=== PATIENT | male | born 1970 | race Two or more races ===

== ENCOUNTER 2020-02-22 05:19 | Inpatient (IN) | payer OTHER ==
[~2020-02-22] VITALS: Ht 170.2 cm; Wt 129.7 kg
[2020-02-22] VITALS (16 sets, daily range): BP systolic 129–165; BP diastolic 55–88
[~2020-02-22 05:19] MED LIST: METFORMIN HCL1000 M1 ORAL
[2020-02-22] MEDS ORDERED: Lidocaine 1% MPF 10mg/ml 5ml ONE (06:13)
[2020-02-22] MEDS ORDERED: Succinylcholine 20mg/ml 10ml vial ONE (06:19)
[2020-02-22] MEDS ORDERED: Rocuronium Bromide 100mg/10ml Inj IV ONE ×3 (06:19→08:12)
[2020-02-22] MEDS ORDERED: Midazolam 2mg/2ml Inj ONE (06:23)
[2020-02-22] MEDS ORDERED: fentaNYL 100 mcg/2 mL IV ONE ×2 (06:23→08:18)
[2020-02-22] MEDS ORDERED: Gelfoam Size TOPIC ONE (06:54)
[2020-02-22] MEDS ORDERED: Bacitracin 50000 Units Vial ONE (06:54)
[2020-02-22] MEDS ORDERED: Thrombin 5000 units TOPIC ONE (06:54)
[2020-02-22] MEDS ORDERED: Neostigmine 1mg/ml 10ml Inj ONE (07:00)
[2020-02-22] MEDS ORDERED: LR 1000ml ONE (07:00)
[2020-02-22] MEDS ORDERED: NS Irrig 1000ml ONE (07:00)
[2020-02-22] MEDS ORDERED: Sterile Water Irrig 1000ml IRRIG ONE (07:00)
[2020-02-22] MEDS ORDERED: propofoL 1,000mg/100ml IV ONE (07:00)
--- NOTE | 2020-02-22 07:01 | Pre-Procedure Note/Attestation ---
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 I attest that, if there was a reasonable possibility of needing a blood transfusion, the patient (or the patient's legal service representative) was given the [facility] standardized written summary, pursuant to the [place] Blood Safety Act ([place] Health and Safety Code # 1645, as amended). I attest that I re-evaluated the patient just prior to the surgery and that there has been no change in the patient's H&P, except as documented below: Adarsh Kimball MD Feb 22, 2020 07:01
--- NOTE | 2020-02-22 07:25 | Brief Operative Note ---
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 Adarsh Kimball Skid Road Worker: Nixon Rodriguez Jr Anesthesiologist: Dr Diallo Anesthesia: general Specimen: none Complications: none Condition: stable Fluids: NS Estimated Blood Loss: minimal Drains: none Implant(s) used?: Yes Nixon Rodriguez Feb 22, 2020 07:25
[2020-02-22] MEDS ORDERED: Phenylephrine 10mg/ml Vial ONE (07:54)
[2020-02-22] MEDS ORDERED: ePHEDrine 50mg/ml Inj ONE (08:06)
[2020-02-22] MEDS ORDERED: Sodium Chloride 10ml vial INJ ONE ×2 (08:06→10:21)
--- NOTE | 2020-02-22 08:16 | Anethesia Preoperative Eval ---
Anesthesia Pre-op PMH/ROS General Date of Evaluation: Feb 22, 2020 Time of Evaluation: 06:50 Anesthesiologist: Imani ASA Score: ASA 3 Mallampati Score Class I : Soft palate, uvula, fauces, pillars visible Class II: Soft palate, uvula, fauces visible Class III: Soft palate, base of uvula visible Class IV: Only hard plate visible Mallampati Classification: Class III Surgeon: Jigar Diagnosis: Cervical radiculopathy Surgical Procedure: ACDF Anesthesia History: none Family History: no anesthesia problems Allergies: Coded Allergies: No Known Allergies (Unverified , 02/22/20) Medications: see eMAR Patient NPO?: Yes Past Medical History Cardiovascular: Reports: HTN - borderline; Denies: CAD, NC, valve dz, arrhythmia, other Pulmonary: Reports: CLEMENT Gastrointestinal/Genitourinary: Reports: GERD; Denies: CRI, ESRD, other Neurologic/Psychiatric: Reports: depression/anxiety; Denies: dementia, CVA, TIA, other Endocrine: Reports: DM - stable on pills; Denies: hypothyroidism, steroids, other HEENT: Denies: cataract (L), cataract (R), glaucoma, EMMONAK (L), EMMONAK (R), other Hematology/Immune: Denies: anemia, DVT, bleeding disorder, other Musculoskeletal/Integumentary: Denies: OA, RA, DJD, DDD, edema, other Other: obesity - morbid obesity PMH Narrative: as above PSxH Narrative: None Anesthesia Pre-op Phys. Exam Physician Exam Last Vital Signs Date Time Temp Pulse Resp B/P (MAP) Pulse Ox O2 Delivery O2 Flow Rate FiO2 02/22/20 05:58 Room Air 02/22/20 05:57 97.0 64 18 144/81 (102) 96 Constitutional: NAD Neurologic: CN 2-12 intact Cardiovascular: RRR, no M/R/G Respiratory: CTA Gastrointestinal: other - obnesity Airway Exam Mallampati Score: Class III MO: limited Neck: short ROM: limited Teeth: intact Dentures: no upper, no lower Anesthesia Pre-op A/P Labs see chart Studies Pre-op Studies: EKG - NSR, CXR - WNL, echo - EF 60-65% Risk Assessment & Plan Assessment: ASA 3 Plan: GA with ETT neuromonitoring Status Change Before Surgery: No Pre-Antibiotics Drug: ANcef 2gr Given Within 1 Hr of Incision: Yes Time Given: 07:45 Viral Diallo MD Feb 22, 2020 08:16
[2020-02-22] MEDS ORDERED: Acetaminophen (Non formulary) 100 ML IV ONE (08:45)
[2020-02-22] MEDS ORDERED: LR 1000ml 1,000 ML IVLG SCH (08:45)
[2020-02-22] MEDS ORDERED: Meperidine 25mg/0.5ml Inj (FOR RIGORS ONLY) IV PRN (08:45)
[2020-02-22] MEDS ORDERED: Ketorolac 30mg Inj IV PRN (08:45)
[2020-02-22] MEDS ORDERED: DiphenhydrAMINE 50mg/ml Inj IVP PRN (08:45)
[2020-02-22] MEDS ORDERED: Hydromorphone 0.5mg/0.5ml inj IVP PRN (08:45)
[2020-02-22] MEDS ORDERED: Ketorolac 30mg Inj ONE (09:16)
[2020-02-22] MEDS ORDERED: Glycopyrrolate 0.2mg/ml 1ml Vial ONE (09:16)
[2020-02-22] MEDS ORDERED: Morphine Sulfate 10mg/ml Inj ONE (10:22)
[2020-02-22] MEDS ORDERED: Thrombin 5000 units spray kit TOPIC ONE (10:41)
[2020-02-22] MEDS ORDERED: Gelfoam Absorbable 1gm powder pkt TOPIC ONE (10:42)
[2020-02-22] MEDS ORDERED: Metoclopramide 10mg/2ml Inj IVP PRN (13:00)
[2020-02-22] MEDS ORDERED: HYDROcodone/Acetamin 5/325 tab ORAL PRN (13:00)
--- NOTE | 2020-02-22 13:08 | Immediate Post-Op Evaluation ---
Immediate Post-Op Evalulation Immediate Post-Op Evalulation Procedure: ACDF C4-C5 C5-C6 Date of Evaluation: Feb 22, 2020 Time of Evaluation: 13:07 IV Fluids: 1400 Blood Products: none Estimated Blood Loss: 50 Urinary Output: 350 Blood Pressure Systolic: 145 Blood Pressure Diastolic: 76 Pulse Rate: 86 Respiratory Rate: 22 O2 Sat by Pulse Oximetry: 98 Temperature (Fahrenheit): 98.9 Pain Score (1-10): 1 Nausea: No Vomiting: No Complications none Patient Status: reacts, patent, extubated, none Hydration Status: adequate Viral Diallo MD Feb 22, 2020 13:08
[2020-02-22] MEDS: NS w/KCl 20mEq 1000ml 1,000 ML IV SCH (15:49)
[2020-02-22] MEDS: ceFAZolin 2gm/50ml Premix 50 ML IV SCH ×2 (15:49→23:14)
--- NOTE | 2020-02-22 15:56 | Diagnostic Imaging Report ---
XRAY C Spine 2-3v CLINICAL HISTORY: Back pain. COMPARISON: None FINDINGS: Fluoroscopy independent procedure performed for cervical fusion. 106.5 seconds of fluoroscopy time utilized by the ordering physician. Total cumulative dose is 73.15 mGy and 0.32001 Gy.cm2. Total of 15 spot images are obtained . IMPRESSION: FLUOROSCOPY GUIDED PROCEDURE.
[2020-02-22] MEDS: Hydromorphone 0.5mg/0.5ml inj IVP PRN ×3 (16:28→23:12)
[2020-02-22] MEDS: NovoLOG Insulin Flexpen SUBQ SCH ×2 (16:46→20:49)
--- NOTE | 2020-02-22 17:15 | Operative Note - Dictated ---
DATE OF OPERATION: 02/22/2020 PREOPERATIVE DIAGNOSES: 1. Traumatic spondyloarthropathy, C4-C5, C5-C6. 2. Congenital fusion, C6-C7. 3. Cervical radiculopathy, C4-C5, C5-C6. POSTOPERATIVE DIAGNOSES: 1. Traumatic spondyloarthropathy, C4-C5, C5-C6. 2. Congenital fusion, C6-C7. 3. Cervical radiculopathy, C4-C5, C5-C6. PROCEDURE PERFORMED: 1. Extremely complex body habitus with anterior approach, instrumentation, decompression, positioning, and surgery modifier 22 applied. 2. C4-C5 artificial disk replacement. 3. C5-C6 artificial disk replacement. 4. Decompression, C5 and C6 bilaterally. SURGEON: Adarsh Kimball MD. SALES AND SERVICE AGENT: Nixon Rodriguez Physician's Lamination Spinner ANESTHESIOLOGIST: Viral Diallo MD. ANESTHESIA: General endotracheal combined anesthetic. ESTIMATED BLOOD LOSS: 100 mL. INDICATIONS FOR PROCEDURE: A pleasant gentleman with a significant injury. The patient had injury to his cervical spondylopathy, C4-C5, C5-C6. Patient had previous congenital fusion at C6-C7. The patient was more susceptible to the injury. The patient had failed a reasonable amount of conservative treatment. He was medically optimized. He had significantly high BMI. He was advised multiple different options including nonoperative treatment and operative treatment. The patient was indicated for surgery. No guarantees of outcome were given. DESCRIPTION OF PROCEDURE: After preop medical clearance and optimization, patient was subsequently taken to the operating room, intubated by the anesthesiologist, positioned supine. The patient was significantly large with respect to his BMI. He had a large chest. After positioning, which took approximately 1 hour, the patient's cervical spine was prepped and draped in usual sterile fashion. All bony problems were well padded. Neuromonitoring was attached. X-ray was difficult to visualize; however, I felt that I had enough visualization and was able to localize properly and see the vertebral bodies at C4-C5 and C5-C6 with proper collimation. Subsequently once the surgical pauses and antibiotics were delivered, left-sided approach was undertaken. Sternocleidomastoid was identified and the platysma was incised in line. The sternocleidomastoid was identified after subplatysmal dissection bluntly with Metzenbaum scissors. Subsequently, the carotid pulsation was palpated. The distal structures were towards the left and my assistant professor of music retracted. The instruments were completely maxed out. The exposure was extremely difficult. I was safely and tediously able to get to the prevertebral fascia and localized C4-C5 and C5-C6. Subsequently, I confirmed the levels, was able to visualize C4-C5. Once the levels were confirmed, I exposed the longus coli was elevated medially and laterally. The C5 pin was placed. Under fluoroscopic visualization, I was able to assess midline. The pin was slightly to the right. I made adjustments accordingly. Subsequently, the second pin was placed at C4 and with [place] distraction, I performed a radical diskectomy at C4-C5. Patient had good bone stock. Subsequently, the PLL was resected. The vertebral bodies were contoured and flattened at C4-C5 and performed a radical diskectomy and decompression. Neuromonitoring was assessed during the whole procedure. There were no adverse changes. Subsequently, artificial disc replacement was placed at C4-C5. Again, the procedure was extremely difficult due to the patient's barrel-chested anatomy and that was maxed out with respect to the instrumentation. Mobilized retractors towards at C5-C6 after assessment of orthogonal views on x-ray. Similar fashion, a C5-C6 implant was placed after decompression. The patient tolerated the procedure well. The surgery was quite complex. Decompression was adequate. Implants were placed well. There were no complications. Implants were M6. After copious irrigation and reapproximation of the platysma and skin, the patient was taken off the table with the spine lift team in stable condition. Adarsh Kimball M.D. DR: FELICIA JOB#: [id number] CC: DAVEY
--- NOTE | 2020-02-22 17:33 | General Progress Note ---
Assessment/Plan Assessment/Plan: ACDF C4-C5 C5-C6 Cervical disc disease neck pain PLAN 1. incentive spirometry 2. resume metformin and monitor sugars 3. PT evaluation and therapy 4. Hydration 5. Pain management 6. discharge once stable with outpatient follow up Subjective Allergies: Coded Allergies: No Known Allergies (Unverified , 02/22/20) Subjective asked to follow up post Objective Last 24 Hour Vital Signs Date Time Temp Pulse Resp B/P (MAP) Pulse Ox O2 Delivery O2 Flow Rate FiO2 02/22/20 16:58 98.8 02/22/20 16:30 97.8 86 22 154/79 (104) 94 02/22/20 16:00 98.2 94 22 147/88 (107) 97 02/22/20 15:04 Nasal Cannula 3.0 02/22/20 14:55 98.8 96 20 146/74 (98) 97 02/22/20 14:40 98.6 87 20 138/72 (94) 95 02/22/20 14:25 98.9 87 16 136/80 (98) 96 02/22/20 14:15 98.0 02/22/20 14:15 98.3 93 22 140/80 96 Nasal Cannula 3 02/22/20 14:00 91 19 147/55 95 Nasal Cannula 3 02/22/20 13:45 93 22 141/70 96 Nasal Cannula 3 02/22/20 13:40 91 22 135/65 96 Nasal Cannula 3 02/22/20 13:30 94 20 133/66 94 Nasal Cannula 3 02/22/20 13:20 90 23 129/68 97 Simple Mask 6 02/22/20 13:10 92 22 141/64 97 Simple Mask 6 02/22/20 13:08 86 22 98 02/22/20 13:00 91 20 144/76 97 Simple Mask 6 02/22/20 12:54 99.0 94 22 165/68 97 Simple Mask 6 02/22/20 05:58 Room Air 02/22/20 05:57 97.0 64 18 144/81 (102) 96 Intake and Output 02/21/20 02/22/20 19:00 07:00 # Voids 1 Height (Feet): 5 Height (Inches): 7.00 Weight (Pounds): 286 Objective WDWN NAD clear breath sounds bilaterally without rhonchi or wheeze [id number] without MRG NABS nontender no HSM no CCE nonfocal Jose Rafael Higgins MD Feb 22, 2020 17:33
[2020-02-22] MEDS: metFORMIN 500mg tab ORAL SCH (18:13)
[2020-02-22] MEDS: Docusate Sod/Senna tab ORAL SCH (18:13)
[2020-02-22] MEDS: Docusate 100mg cap ORAL SCH (18:13)
[2020-02-23] VITALS: BP 143/82
[2020-02-23] MEDS: NS w/KCl 20mEq 1000ml 1,000 ML IV SCH ×2 (02:03→12:00)
[2020-02-23] MEDS: Hydromorphone 0.5mg/0.5ml inj IVP PRN ×3 (02:37→17:42)
[2020-02-23 04:00] VITALS: BP 155/86
[2020-02-23] MEDS: NovoLOG Insulin Flexpen SUBQ SCH ×4 (06:30→20:24)
[2020-02-23] MEDS: ceFAZolin 2gm/50ml Premix 50 ML IV SCH (06:38)
[2020-02-23] MEDS: HYDROcodone/Acetamin 5/325 tab ORAL PRN ×2 (06:42→21:49)
[2020-02-23 08:00] VITALS: BP 153/77
[2020-02-23] MEDS: Docusate 100mg cap ORAL SCH ×2 (08:46→17:41)
[2020-02-23] MEDS: metFORMIN 500mg tab ORAL SCH ×2 (08:46→17:41)
[2020-02-23] MEDS: Docusate Sod/Senna tab ORAL SCH ×2 (08:46→17:41)
--- NOTE | 2020-02-23 09:09 | General Progress Note ---
Assessment/Plan Assessment/Plan: ACDF C4-C5 C5-C6 Cervical disc disease neck pain PLAN 1. incentive spirometry 2. resume metformin and monitor sugars 3. PT evaluation and therapy 4. Hydration 5. Pain management 6. discharge once stable with outpatient follow up Subjective Allergies: Coded Allergies: No Known Allergies (Unverified , 02/22/20) Subjective stable post op Objective Last 24 Hour Vital Signs Date Time Temp Pulse Resp B/P (MAP) Pulse Ox O2 Delivery O2 Flow Rate FiO2 02/23/20 08:00 98.7 75 19 153/77 (102) 97 02/23/20 04:00 98.0 77 20 155/86 (109) 97 02/23/20 02:40 72 98 02/23/20 00:00 98.2 73 20 143/82 (102) 97 02/22/20 23:00 69 31 99 28 02/22/20 21:00 Nasal Cannula 3.0 02/22/20 20:00 98.0 89 22 151/84 (106) 94 02/22/20 16:58 98.8 02/22/20 16:30 97.8 86 22 154/79 (104) 94 02/22/20 16:00 98.2 94 22 147/88 (107) 97 02/22/20 15:04 Nasal Cannula 3.0 02/22/20 14:55 98.8 96 20 146/74 (98) 97 02/22/20 14:40 98.6 87 20 138/72 (94) 95 02/22/20 14:25 98.9 87 16 136/80 (98) 96 02/22/20 14:15 98.0 02/22/20 14:15 98.3 93 22 140/80 96 Nasal Cannula 3 02/22/20 14:00 91 19 147/55 95 Nasal Cannula 3 02/22/20 13:45 93 22 141/70 96 Nasal Cannula 3 02/22/20 13:40 91 22 135/65 96 Nasal Cannula 3 02/22/20 13:30 94 20 133/66 94 Nasal Cannula 3 02/22/20 13:20 90 23 129/68 97 Simple Mask 6 02/22/20 13:10 92 22 141/64 97 Simple Mask 6 02/22/20 13:08 86 22 98 02/22/20 13:00 91 20 144/76 97 Simple Mask 6 02/22/20 12:54 99.0 94 22 165/68 97 Simple Mask 6 Intake and Output 02/22/20 02/23/20 19:00 07:00 Intake Total 500 ml 1490 ml Output Total 350 ml 1900 ml Balance 150 ml -410 ml Intake Oral 240 ml IV Total 500 ml 1250 ml Output Urine Total 350 ml 1900 ml Height (Feet): 5 Height (Inches): 7.00 Weight (Pounds): 286 Objective WDWN NAD clear breath sounds bilaterally without rhonchi or wheeze [id number] without MRG NABS nontender no HSM no CCE nonfocal Jose Rafael Higgins MD Feb 23, 2020 09:09
[2020-02-23 11:50] VITALS: BP 140/78
--- NOTE | 2020-02-23 13:30 | 48 Hour Post Anesthesia Eval ---
Post Anesthesia Evaluation Procedure: ACDF C4-C5 C5-C6 Date of Evaluation: Feb 23, 2020 Time of Evaluation: 13:29 Blood Pressure Systolic: 148 0: 76 Pulse Rate: 78 Respiratory Rate: 20 Temperature (Fahrenheit): 97.8 O2 Sat by Pulse Oximetry: 97 Airway: patent Nausea: No Vomiting: No Pain Intensity: 3 Hydration Status: adequate Cardiopulmonary Status: stable Mental Status/LOC: patient returned to baseline Follow-up Care/Observations: n/a Post-Anesthesia Complications: none Follow-up care needed: N/A Viral Diallo MD Feb 23, 2020 13:30
[2020-02-23 15:58] VITALS: BP 149/81
[2020-02-23 21:00] VITALS: BP_SYST 149; BP_SYST 163; BP_DIAS 75; BP_DIAS 91
[2020-02-24] VITALS (7 sets, daily range): BP systolic 151–184; BP diastolic 80–87
[2020-02-24] MEDS: HYDROcodone/Acetamin 5/325 tab ORAL PRN ×3 (03:30→18:36)
[2020-02-24] MEDS: NovoLOG Insulin Flexpen SUBQ SCH ×3 (06:30→16:30)
[2020-02-24] MEDS: Hydromorphone 0.5mg/0.5ml inj IVP PRN (09:15)
[2020-02-24] MEDS: Docusate Sod/Senna tab ORAL SCH ×2 (09:18→17:20)
[2020-02-24] MEDS: Docusate 100mg cap ORAL SCH ×2 (09:18→17:20)
[2020-02-24] MEDS: metFORMIN 500mg tab ORAL SCH ×2 (09:19→17:20)
--- NOTE | 2020-02-24 10:25 | General Progress Note ---
Assessment/Plan Assessment/Plan: ACDF C4-C5 C5-C6 Cervical disc disease neck pain PLAN 1. incentive spirometry 2. resume metformin and monitor sugars 3. PT evaluation and therapy 4. venous US 5. Pain management - still high and requires IV pain meds 6. discharge once stable with outpatient follow up Subjective Allergies: Coded Allergies: No Known Allergies (Unverified , 02/22/20) Subjective leg pain Objective Last 24 Hour Vital Signs Date Time Temp Pulse Resp B/P (MAP) Pulse Ox O2 Delivery O2 Flow Rate FiO2 02/24/20 09:19 73 175/87 02/24/20 08:00 98.0 73 18 175/87 (116) 95 02/24/20 04:00 98.3 76 19 153/82 (105) 93 02/24/20 03:39 70 27 99 28 02/24/20 00:00 99.0 76 18 151/80 (103) 97 02/23/20 22:00 71 28 98 28 02/23/20 21:00 Room Air 02/23/20 21:00 98.9 75 18 149/75 (99) 94 02/23/20 18:12 97.7 02/23/20 15:58 97.7 70 20 149/81 (103) 97 02/23/20 15:48 97.8 02/23/20 13:30 78 20 97 02/23/20 11:50 98.6 74 19 140/78 (98) 97 02/23/20 10:41 75 153/77 Intake and Output 02/23/20 02/24/20 19:00 07:00 Intake Total 1460 ml 600 ml Output Total 1050 ml Balance 410 ml 600 ml Intake Oral 960 ml 600 ml IV Total 500 ml Output Urine Total 1050 ml # Voids 3 Height (Feet): 5 Height (Inches): 7.00 Weight (Pounds): 286 Objective WDWN NAD clear breath sounds bilaterally without rhonchi or wheeze [id number] without MRG NABS nontender no HSM no CCE nonfocal Jose Rafael Higgins MD Feb 24, 2020 10:25
--- NOTE | 2020-02-24 11:32 | Diagnostic Imaging Report ---
EXAM: ULTRASOUND Venous Duplex Scan John Leg CLINICAL HISTORY: Leg pain and edema. COMPARISON: None TECHNIQUE: Doppler examination include grayscale images obtained with and without compression, and color and spectral doppler analysis. FINDINGS: Doppler examination shows normal spontaneity, phasicity, compressibility in the bilateral lower extremities. There is no thrombus identified by grayscale. Normal color and spectral flow is identified. There is no evidence of valvular incompetency or insufficiency. IMPRESSION: UNREMARKABLE VENOUS DUPLEX.
--- NOTE | 2020-02-24 17:16 | Orthopedic Spine Progress Note ---
Ortho Spine - Progress Note Subjective Additional Comments: Doing well post-op reports improved neck pain and radicular symptoms. Reports soreness Objective Vital Signs: Last 24 Hour Vital Signs Date Time Temp Pulse Resp B/P (MAP) Pulse Ox O2 Delivery O2 Flow Rate FiO2 02/24/20 16:00 97.6 70 18 152/85 (107) 97 02/24/20 12:51 71 155/84 (107) 02/24/20 12:02 184/85 02/24/20 12:00 98.0 72 20 184/85 (118) 96 02/24/20 09:19 73 175/87 02/24/20 09:00 Room Air 02/24/20 08:00 98.0 73 18 175/87 (116) 95 02/24/20 04:00 98.3 76 19 153/82 (105) 93 02/24/20 03:39 70 27 99 28 02/24/20 00:00 99.0 76 18 151/80 (103) 97 02/23/20 22:00 71 28 98 28 02/23/20 21:00 Room Air 02/23/20 21:00 98.9 75 18 149/75 (99) 94 02/23/20 18:12 97.7 I&O: Intake and Output 02/23/20 02/24/20 19:00 07:00 Intake Total 1460 ml 600 ml Output Total 1050 ml Balance 410 ml 600 ml Intake Oral 960 ml 600 ml IV Total 500 ml Output Urine Total 1050 ml # Voids 3 Wound: clean, dry, intact Drains: none Neuro Status: stable Assessment Post-op Diagnosis: same as pre-op Procedure Performed: C4/5 and C5/6 artificial disc replacement Plan Plan: discharge to home - Spoke to Dr. Higgins regarding blood pressure and BG medication and control Nixon Rodriguez Feb 24, 2020 17:16
[2020-02-24] MEDS ORDERED: NORCO 5-325 TA1 EAC1 ORAL (20:02)
[2020-02-24] MEDS ORDERED: NORVASC5 MG ORAL (20:03)
--- NOTE | 2020-02-28 16:21 | Discharge Summary ---
Discharge Summary Hospital Course Date of Admission Feb 22, 2020 at 05:19 Date of Discharge Feb 24, 2020 at 20:25 Admitting Diagnosis Cervical radiculopathy , neck pain Reason for Hospitalization: elective surgery ZHENG Luque, 49 year old male , was admitted on Feb 22, 2020 at 05:19 for Cervical Radiculopathy,Cervicalgia. Patient was admitted for elective surgery. Consultations Dr Higgins -IM/pulmo Procedures s/p 02/22/[address] Kimball 1. Extremely complex body habitus with anterior approach, instrumentation, decompression, positioning, and surgery modifier 22 applied. 2. C4-C5 artificial disk replacement. 3. C5-C6 artificial disk replacement. 4. Decompression, C5 and C6 bilaterally. Hospital Course rapid COVID testing was negative status post surgery course of recovery uneventful initially IV fluids s/p perioperative antibiotics neurovascular status closely monitored, and remained stable incision clean dry and intact patient reported improvement in neck pain and radicular symptoms, still reported leg pain venous duplex bilateral lower extremity revealed no evidence of acute DVT. pain management was addressed ; and pain was controlled remained hemodynamically stable blood pressure was managed with calcium channel kj, and Clonidine was on board as needed for blood pressure spikes. blood sugar was managed with metformin and Januvia sliding scale of insulin provided as needed diabetic diet and diabetic teaching provided renal parameters and electrolytes were closely monitored; potassium was replaced. patient ambulated with PT fall precautions maintained; safe for ambulation DVT prophylaxis provided use of incentive spirometry was encouraged while in the bed tolerated diet , IV fluids discontinued GI prophylaxis provided antiemetics were on board as needed voided freely bowel regimen instituted patient was stable for discharge discharge instructions provided follow up with surgeon in the office as advised DISCHARGE DIAGNOSES 1. Traumatic spondyloarthropathy, C4-C5, C5-C6. 2. Congenital fusion, C6-C7. 3. Cervical radiculopathy, C4-C5, C5-C6. 4. s/p Extremely complex body habitus with anterior approach, instrumentation, decompression, positioning, and surgery modifier 22 applied. C4-C5 artificial disk replacement. C5-C6 artificial disk replacement. Decompression, C5 and C6 bilaterally. 5. HTN 6. DM Discharge Medications Continued Medications: Amlodipine Besylate (Norvasc) 5 Mg Tablet 5 MG ORAL TWICE A DAY for High blood pressure , TAB (This prescription has been renewed) Hydrocodone Bit/Acetaminophen 5-325* ([place] 5-325 Tablet*) 1 Each Tablet 1 TAB ORAL Q4H PRN for For Pain, #40 TAB (This prescription has been renewed) Metformin Hcl* (Metformin Hcl*) 1,000 Mg Tablet 1000 MG ORAL DAILY for as prescribed, TAB (This prescription has been renewed) Discharge Condition Upon Discharge: stable Discharge Vital Signs Last Vital Signs Date Time Temp Pulse Resp B/P (MAP) Pulse Ox O2 Delivery O2 Flow Rate FiO2 02/24/20 17:20 70 152/85 02/24/20 16:00 97.6 18 97 02/24/20 09:00 Room Air 02/24/20 03:39 28 02/22/20 21:00 3.0 Discharge Disposition Patient was discharged home Discharge Instructions Discharge Instructions Special Instructions I have been assigned to complete a D/C Summary on this account. I was not involved in the patient management Ibis Davis NP Feb 28, 2020 16:21
--- NOTE | 2020-02-28 18:19 | Diagnostic Imaging Report ---
XRAY C Spine 2-3v CLINICAL HISTORY: Back pain. COMPARISON: None FINDINGS: Fluoroscopy independent procedure performed for cervical fusion. 106.5 seconds of fluoroscopy time utilized by the ordering physician. Total cumulative dose is 73.15 mGy and 0.58275 Gy.cm2. Total of 15 spot images are obtained . IMPRESSION: FLUOROSCOPY GUIDED PROCEDURE.
== END 2020-02-24 20:25 | disposition home or self-care (01) | DRG 518 ==
LOC: SDSOVERFLO 05:19 → 3E 14:20
PROC: 0RT30ZZ Resection of Cervical Vertebral Disc, Open Approach (ICD-10-PCS; principal; 2020-02-22 07:00)
PROC: 0RR30JZ Replacement of Cervical Vertebral Disc with Synthetic Substitute, Open Approach (ICD-10-PCS; principal; 2020-02-22 07:00)
DX: M48.32 Traumatic spondylopathy, cervical region (principal); M54.12 Radiculopathy, cervical region; M43.22 Fusion of spine, cervical region; E11.9 Type 2 diabetes mellitus without complications
CPT/HCPCS: 36415; 72040; 76000; 82962; 86850; 86900; 86901; 87081; 93970; 94003; 94150; C9399; J1815; J2180; J2250; J2370; J2710; U0002